=== PATIENT | female | born 1970 | race Asian ===

== ENCOUNTER 2018-07-05 00:05 | Emergency (ER) | payer OTHER ==
[~2018-07-05] VITALS: Ht 157.5 cm; Wt 78.5 kg
[2018-07-05 00:11] VITALS: Ht 157.5 cm; Wt 78.5 kg
[2018-07-05 01:38] VITALS: BP 140/85
== END 2018-07-05 01:38 | disposition home or self-care (01) ==
LOC: ED 00:05
DX: R51 Headache (principal); I10 Essential (primary) hypertension; M54.2 Cervicalgia; E11.9 Type 2 diabetes mellitus without complications; E78.00 Pure hypercholesterolemia, unspecified
CPT/HCPCS: 82962

== ENCOUNTER 2020-02-06 23:15 | Emergency (ER) | payer OTHER ==
[~2020-02-06] VITALS: Ht 157.5 cm; Wt 71.7 kg
[2020-02-06 23:29] VITALS: Ht 157.5 cm; Wt 71.7 kg
[2020-02-07 01:15] VITALS: BP 141/81
== END 2020-02-07 01:15 | disposition home or self-care (01) ==
LOC: ED 23:15
DX: T55.0X1A Toxic effect of soaps, accidental (unintentional), initial encounter (principal); R11.0 Nausea; I10 Essential (primary) hypertension; E11.9 Type 2 diabetes mellitus without complications; E78.00 Pure hypercholesterolemia, unspecified; Y92.89 Other specified places as the place of occurrence of the external cause